=== PATIENT | male | born 1990 | race Caucasian/White ===

== ENCOUNTER 2021-02-16 23:47 | Emergency (ER) | payer BC, OTHER ==
[2021-02-16 23:54] VITALS: BP 128/73; PULSE 80; TEMP 98.1; BMI 26.6
== END 2021-02-17 00:11 | disposition home or self-care (01) ==
LOC: FER 23:47
DX: S01.81XA Laceration without foreign body of other part of head, initial encounter (principal); W21.220A Struck by ice hockey puck, initial encounter
CPT/HCPCS: 99281-25